=== PATIENT | female | born 1985 | race Two or more races ===

== ENCOUNTER 2023-07-16 13:12 | Outpatient (REF) | payer OTHER, SELFPAY ==
[2023-07-21 10:11] LABS: Age Gdln ACOG Testing Note (.); HPV Aptima Negative (Negative); IGP, Aptima HPV, rfx 16/18,45 Note (.)
== END 2023-07-16 13:13 | disposition home or self-care (01) ==
LOC: LAB 13:12
PROVIDERS: PCP Physician Assistant; Visit Provider Physician Assistant
DX: Z01.419 Encounter for gynecological examination (general) (routine) without abnormal findings (principal)
CPT/HCPCS: 87624; G0145

== ENCOUNTER 2023-08-08 09:19 | Outpatient (OUT) | payer OTHER, SELFPAY | END 2023-08-08 09:20 | disposition home or self-care (01) | LOC: PST 09:22 | PROVIDERS: Visit Provider Obstetrics & Gynecology | DX: Z01.818 Encounter for other preprocedural examination (principal); Z30.2 Encounter for sterilization ==

== ENCOUNTER 2023-08-24 06:06 | Day surgery (SDC) | payer OTHER, SELFPAY ==
[2023-08-08 09:47] VITALS: PULSE 60; RESP 16; TEMP 36.4; BMI 25.1
[2023-08-24] VITALS (10 sets, daily range): BP systolic 108–123; BP diastolic 51–67; PULSE 74–92; RESP 11–30; TEMP 36.4–36.7; O2SAT 96–100; BMI 24.8
[2023-08-24 06:15] LABS: Basophils Percent Auto 0.2 % (0.2-2.0); Eosinophils Absolute Auto 0.1 10^3/uL (0.0-0.7); Eosinophils Percent Auto 1.9 % (0.9-7.0); Hematocrit 43.3 % (36.0-48.0); Hemoglobin 14.2 g/dL (12.0-16.0); Immature Granulocytes Abs Auto 0.01 10^3/uL (0.00-0.03); Immature Granulocytes Pct Auto 0.2 % (0.0-0.5); Lymphocytes Absolute Auto 2.2 10^3/uL (1.2-3.8); Lymphocytes Percent Auto 35.8 % (20.5-60.0); Mean Corpuscular HGB Conc 32.8 g/dL (29.9-35.2); Mean Corpuscular Hemoglobin 29.2 pg (26.7-34.0); Mean Corpuscular Volume 88.9 fL (81.0-99.0); Mean Platelet Volume 9.7 fL (9.5-13.5); Monocytes Absolute Auto 0.5 10^3/uL (0.3-0.8); Monocytes Percent Auto 7.8 % (1.7-12.0); Neutrophils Absolute Auto 3.4 10^3/uL (1.4-6.5); Neutrophils Percent Auto 54.1 % (43.0-75.0); Platelet Count 289 10^3/uL (150-450); Red Blood Count 4.87 10^6/uL (4.20-5.40); Red Cell Distribution Width 12.6 % (11.0-15.0); White Blood Count 6.3 10^3/uL (4.0-11.0)
[2023-08-24 06:39] LABS: HCG Quantitative <1 mIU/mL
[2023-08-24] MEDS: LACTATED RINGER'S SOLUTION 1,000 ML 50 ML IV (06:56)
--- NOTE | 2023-08-24 08:35 | P.ON_ITS ---
Brief Operative Note Date of procedure: 08/24/23 Pre-op diagnosis: multiparity, desires permanent sterilization Post-op diagnosis: same as pre-op Procedure: Brief Operative Note Date of procedure: Pre-op diagnosis: Post-op diagnosis: Procedure: NAME OF PROCEDURE: robotic assisted bilateral laparoscopic salpingectomy, removal of copper iud PROCEDURE: The patient was taken back to the Operating Room where she was given general anesthesia without difficulty. She was then prepped and draped in the normal sterile fashion after being placed in a dorsal lithotomy position. A wet sponge stick was placed into the patient's vagina. Attention was then turned to the patient's abdomen, where a scalpel was used to make a small infraumbilical incision. The S retractors were then used to dissect the underlying layers until the fascia could be seen. The fascia was then grasped with Lashae clamps and tented up. A knife was then used to make a small incision to the fascia. The muscle was identified, at that time two sutures of #0 Vicryl on a GI needle was then used and placed through the fascia. the peritoneum was then identified and entered bluntly. The 10-4 Joyce was then placed into the patient's abdomen. This was confirmed with direct visualization of the bowel, using the laparoscope. The patient's abdomen was then insufflated using approximately 4 liters of CO2 gas. Survey of the patient's abdomen demonstrated ovaries were normal in appearance as well as both tubes and uterus. A second and third rt and lt lateral robotic ports which were 8 mm in size, was then placed after the skin incision was made under direct visualization . the robotic arms were engaged. The patient's tube on the patient's right side was identified and tented up using a grasper, the vessel sealer apparatus was then used to come across the mesosalpingx from the fimbriated end to the insertion site at the uterus, the tube was then amputated and removed in its entirety. This was done on the contralateral side. The tubes were the removed from the patients abdomen. Excellent hemostasis was noted. The lateral ports were then moved under direct visualization with excellent hemostasis. All instruments were removed from the patient's abdomen. The fascia was closed using the #0 Vicryl on GI needle. The skin was closed using 4-0 Vicryl subcuticularly. All instruments were removed from the patient's vagina as well. The patient was taken out of the dorsal lithotomy position and placed in the supine position and taken to recovery in stable condition. Sponge, lap and needle counts were correct x2. please note prior to surgery the iud was removed using a ring forcep without difficulty Anesthesia: MANOJ Surgeon: Bobby Schultz Steward/Stewardess Lounge: Felipa Villafana Estimated blood loss (mL): 5 Pathology: other (tubes and iud) Condition: stable Disposition: PACU
== END 2023-08-24 10:10 | disposition home or self-care (01) ==
PROVIDERS: Visit Provider Obstetrics & Gynecology
PROC: (CPT 840; principal; 2023-08-24 07:30)
DX: Z30.2 Encounter for sterilization (principal); Z30.432 Encounter for removal of intrauterine contraceptive device; N83.8 Other noninflammatory disorders of ovary, fallopian tube and broad ligament; E03.9 Hypothyroidism, unspecified; Z90.49 Acquired absence of other specified parts of digestive tract
CPT/HCPCS: 58301; 58661; 36415; 84702; 85025; 88302; J1170; J2704

== ENCOUNTER 2025-03-02 13:03 | Outpatient (REF) | payer SELFPAY ==
[2025-03-04 13:08] LABS: Age Gdln ACOG Testing Note (.); HPV Aptima Negative (Negative); IGP, Aptima HPV, rfx 16/18,45 Note (.)
== END 2025-03-02 13:04 | disposition home or self-care (01) ==
LOC: LAB 13:03
PROVIDERS: Visit Provider Nurse Practitioner Family
DX: Z01.419 Encounter for gynecological examination (general) (routine) without abnormal findings (principal)
CPT/HCPCS: 87624; 88175